=== PATIENT | female | born 1950 | race Caucasian/White ===

== ENCOUNTER → 2017-04-05 | Outpatient (CLI) | payer OTHER, MEDICARE | LOC: NUC 12:01 | DX: M47.894 Other spondylosis, thoracic region (principal); I10 Essential (primary) hypertension; R61 Generalized hyperhidrosis; R06.09 Other forms of dyspnea ==

== ENCOUNTER → 2021-08-04 | Outpatient (CLI) | payer OTHER, MEDICARE ==
[~2021-08-04] VITALS: Ht 162.6 cm; Wt 65.3 kg
[~2021-08-04] MED LIST: ALPRAZOLAM1 MG PO; ANAPROX DS550 MG PO; ASA81BEC PO; BUPROPION XL300 MG PO; COZAAR100 MG PO; CULTURELLE1 EAC2 PO; FLUOXETINE HCL40 MG PO; LIPITOR80 MG PO; METHOCARBAMOL750 MG PO; MUCINEX600 MG PO; PERCOCET 5-3251 EACH PO
--- NOTE | ~2021-08-04 | HPC ---
[facility] [place] [address] PAIN MANAGEMENT CONSULTATION Name: DEMETRIO BOWLING Room #: REG GENE Yevgeniy#: [id number] Admission: 08/04/21 Attend Phys: Aram Lester DO Discharge: Date of : 50 Report #: [id number] THIS REPORT FOR: cc: CHENTE - [facility] family physician/PCP FAM - No family physician/PCP Aram Lester DO ~ cc: Tyler Sherwood MD DATE OF SERVICE: 08/04/2021 REFERRING PHYSICIAN: Dr. Tyler Sherwood. CHIEF COMPLAINT: Low back pain, right anterior thigh pain. HISTORY OF PRESENT ILLNESS: As you know, the patient is a 71-year-old female who has had a multiple-year history of low back pain, right anterior thigh pain. She states the pain began without inciting injury or trauma. She has trialled conservative treatment without benefit. She sought evaluation through Neurosurgery, seeing Dr. Tyler Sherwood in consultation. She has submitted to minimally invasive L4-L5 laminectomies with medial facetectomies and foraminotomies. This was done in 01/2021. She had been following up for routine evaluations. She has been utilizing oxycodone consistently for pain control. Unfortunately, her symptoms have not improved with treatment with oral medications and we have not seen a significant improvement in her symptomology after even surgery. Due to lack of improvement with conservative treatment and being advised that there is no further surgical options other than the implantation of a spinal cord stimulator, the patient was referred on to our clinic to discuss the possibility of undergoing lumbar epidural injections. If these are unsuccessful, then trial a spinal cord stimulator. The patient reports today pain is periodic. She describes pain as more of a shooting, aching, throbbing, sharp, numbness and tingling. The patient's current pain score at 9.75/10. Daily average at 10/10. Worst pain has been is 10/10. The patient states pain varies with activity, improves with lying down. She has been referred to our service to discuss interventional treatment options to address lumbar radiculopathy, unresolved with surgical options. PAST MEDICAL HISTORY: 1. Anemia. 2. Hypertension. 3. Degenerative joint disease. 4. Osteoarthritis. 5. Emotional problems. 6. Depression. 7. Anxiety. 8. Dyslipidemia. [address] [address] PAIN MANAGEMENT CONSULTATION Name: DEMETRIO BOWLING Room #: REG bA Vuong#: [id number] Admission: 08/04/21 Attend Phys: Aram Lester DO Discharge: Date of : 50 Report #: [id number] PAST SURGICAL HISTORY: 1. Partial hysterectomy with fibroid removal. 2. Right total hip arthroplasty. 3. Left total hip arthroplasty. 4. Right hand tendon surgery. 5. Left shoulder surgery x 2. 6. L4-L5 laminectomy and foraminotomy. SOCIAL HISTORY: The patient denies tobacco use. Denies IV or illicit drug use. Admits to occasional alcohol beverage. She is retired, retired several years ago. She is accompanied by her , present in room today. She is not receiving disability income, not trying to obtain any disability benefits and not in litigation in regards to her pain. REVIEW OF SYSTEMS: Positive for fatigue, weakness, hearing loss with tinnitus, shortness of breath, nocturia, breast discharge, numbness and tingling sensations, tremors, memory loss with confusion, nervousness, depression, anemia and chronic low back pain. All other review of systems negative per 12-point review of systems other than those listed in the history of present illness. Pain impact score 50 of 70, severe interference of daily activities secondary to pain. ALLERGIES: MORPHINE. CURRENT MEDICATIONS: Naproxen 550 mg once a day, methocarbamol 750 mg t.i.d., Percocet 5/325 one tab every 6 hours p.r.n. pain, losartan 100 mg per day, lactobacillus 1 tab per day, alprazolam 1 mg 3 times a day, aspirin 81 mg per day, atorvastatin 80 mg per day, bupropion 300 mg once a day, fluoxetine 40 mg once a day and guaifenesin 600 mg every 12 hours p.r.n. IMAGING: No imaging is provided. PQRS: The patient has known arthritic changes of the lumbar spine, bilateral hips. No rheumatoid arthritis. Placing pain intensity at 9.75/10. She is a no fall risk, but has had multiple falls in the last 3 months, apparently tripping over objects. This has been rectified. She is not on blood thinners, but is treated for hypertension. She is on chronic opioids, has a low to moderate opioid addiction potential based on assessment tool. Pain impact is 50 of 70, severe interference of daily activities secondary to pain. PHYSICAL EXAMINATION: VITAL SIGNS: Blood pressure 141/80, pulse 84, respiratory rate 16 and unlabored. The patient is 97% on room air. Height 5 feet 4 inches tall, weight 144 pounds, BMI calculated 24.7. GENERAL: Well-developed, well-nourished, well-hydrated 71-year-old female, [facility] [address] [place] [address] PAIN MANAGEMENT CONSULTATION Name: DEMETRIO BOWLING Room #: REG CLAb Vuong#: [id number] Admission: 08/04/21 Attend Phys: Aram Lester DO Discharge: Date of : 50 Report #: [id number] appears stated age. Pain is rated today 9.75/10. HEENT: Normocephalic, atraumatic. Pupils equal, round and responsive. She is wearing a facemask in compliance with COVID-19 regulations. LUNGS: Clear. CARDIOVASCULAR: Regular. No appreciable gallop or rub. ABDOMEN: Soft. EXTREMITIES: Show no clubbing, no cyanosis and no edema. MUSCULOSKELETAL: Lower extremities strength appears symmetrical 5/5, intact to light touch from L1 through S2 dermatomes. Seated straight leg raising is negative. Supine straight leg raising is essentially negative. She has an unsteady gait. She rises from a seated position with some difficulty. Muscle bulk and tone is equal and symmetrical in lower extremities. Deep tendon reflexes are equal and symmetrical. Straight leg raising negative bilaterally. ASSESSMENT: 1. Chronic low back pain. 2. Lumbar radiculopathy. 3. Lumbosacral spondylosis with radiculopathy. 4. Failed lumbar spine surgery. 5. Chronic intractable pain. 6. Left arm pain, status post fracture with a nonhealing fracture line. PLAN: 1. The patient has been referred to our service by her neurosurgeon, Dr. Tyler Sherwood to discuss treatment options for lumbar radicular symptoms unresolved with surgery options. The patient and I discussed the treatment options we have available to address lumbar radicular symptoms. We discussed that we will obtain the patient's MRI, so we can review those findings further, but gave general treatment options to address the issues today. The following was discussed with the patient. We discussed physical therapy, stretching exercise, core strengthening as a treatment approach. We discussed suggestions and medication management to add neuropathic medications such as amitriptyline, nortriptyline, Cymbalta, Lyrica or gabapentin to her current medication regimen. We discussed lumbar epidural injections under fluoroscopic guidance as a treatment approach. These have been successful in the past, but have been discontinued due to recent surgery. We also discussed spinal cord stimulator for which the patient was referred to our clinic by her neurosurgeon, Dr. Sherwood and ultimately surgical decompression though at this point, it appears that she is not a surgical candidate. After reviewing risks and benefits of all proposed treatment options, the patient chose to move forward with a lumbar epidural injection under fluoroscopic guidance. 2. The patient was advised due to third democrat payer authorizations and restrictions, we would have to obtain preauthorization for the patient to undergo lumbar epidural injection. We will begin that process immediately. Once it has been completed, we will have the patient return to undergo the first in a series of lumbar epidural injections. I [place] [address] PAIN MANAGEMENT CONSULTATION Name: DEMETRIO BOWLING Room #: REG GENE Vuong#: [id number] Admission: 08/04/21 Attend Phys: Aram Lester DO Discharge: Date of : 50 Report #: [id number] we will have the patient return as quickly as possible to undergo that procedure. 3. The patient and I did discuss at length the spinal cord stimulator technology for which the patient was referred to our clinic. She wishes to delay that option of treatment and consider epidurals initially. If these are unsuccessful, then trial the spinal cord stimulator. We will provide the patient with information at her next visit in regards to the cord stimulator we would recommend and if she chooses to move forward, send her off to see Psychiatry as part of the workup for that device. 4. The patient complains of ongoing left arm pain. Apparently, she has an unhealing fracture. There was some complication with the instrumentation initially and the patient has had a nonunion fracture. She has been advised by Orthopedics that a total shoulder will be necessary to address this issue. If this is truly the case, I would side with the orthopedic surgeon. If a total shoulder would be something to alleviate the patient's symptoms, I would recommend moving forward with that type of treatment. She is on opioid medication and is not noticing much benefit with this medication and thus I do not feel that any further adjustments in that medication will be providing any significant benefit. We recommend the patient follow up with Orthopedics in regard to total shoulder. 5. We will see the patient back in followup visit once we have achieved the authorization to undergo the lumbar epidural injection she has requested today. We will discuss further the spinal cord stimulator at that time. 6. We wish to thank Dr. Tyler Sherwood for the referral of the patient to our clinic. We will keep you apprised of response to treatment as we address lumbar radiculopathy with lumbar epidural injections initially and whether or not we move forward with a spinal cord stimulator. By: [id number] Aram Lester DO /nt
[2021-08-04 14:26] VITALS: BP 141/80
--- NOTE | 2021-08-04 14:28 | NUR ---
Pain Clinic Assessment: 1. History of Osteoarthritis: HIPS BACK History of Rheumatoid Arthritis: Not Applicable 2. Height: 5 ft. 4 in. 162.6 cm. Weight: 144.0 lb. oz. 65.318 kg. Patient's BMI: 24.7 3. Vital Signs: BP: 141/80 Pulse: 84 Resp: 16 Temp: 02 Sat: 97 ECG Mon: 4. Pain Intensity: 8.75 5. Fall Risk: Dizziness: N Needs help standing or walking: N Fallen in the last 3 months: Y Fall risk comments: 6. Patient on Blood Thinner: None 7. History of Hypertension: Y 8. Opioid Therapy greater than 6 weeks: Y Opiate Contract Signed: 9. Risk Assessment Tool Provided: LOW-2 10. Functional Assessment Tool: 50/70 11. Recreational Drug Use: Never Drug Type: Tobacco Use: Never Smoker Tobacco Type: Amount or Packs/day: How Many Years: Alcohol Use: Yes Frequency: Special Occasions Quant:
== END ==
LOC: PAIN 10:08
PROVIDERS: ATTEND Anesthesiology Pain Medicine
DX: M47.27 Other spondylosis with radiculopathy, lumbosacral region (principal); M54.16 Radiculopathy, lumbar region; G89.29 Other chronic pain; M54.50 Low back pain, unspecified; M79.602 Pain in left arm; Z88.8 Allergy status to other drugs, medicaments and biological substances; Z79.899 Other long term (current) drug therapy

== ENCOUNTER → 2021-08-11 | Outpatient (CLI) | payer OTHER, MEDICARE ==
[~2021-08-11] VITALS: Ht 162.6 cm; Wt 65.8 kg
[~2021-08-11] MED LIST changes: +PERCOCET 10-321 EAC1 PO; -PERCOCET 5-3251 EACH PO
--- NOTE | ~2021-08-11 | HPC ---
[facility] [place] [place] [address] PAIN MANAGEMENT CONSULTATION Name: DEMETRIO BOWLING Room #: REG Ab Fuller.#: [id number] Admission: 08/11/21 Attend Phys: Aram Lester DO Discharge: Date of : 50 Report #: [id number] THIS REPORT FOR: cc: TOM BOLIVAR MD, RADHIKA MD Johnson, James E. DO ~ DATE OF SERVICE: 08/11/2021 REFERRING PHYSICIAN: 08/11/2020 CHIEF COMPLAINT: Low back pain, right anterior thigh pain. HISTORY OF PRESENT ILLNESS: As you know, the patient is a 71-year-old female who has a longstanding history of low back pain, right anterior thigh pain. She states pain began without inciting injury or trauma. She trialed conservative treatment without benefit. She sought evaluation through Neurosurgery seeing Dr. Tyler Sherwood in consultation to address surgery at the L4-5 level. It was determined at this last visit that treatment should remain conservative as he did not feel that surgery would be beneficial. The patient was referred to our clinic to discuss either interventional therapy such as epidural injections or to discuss spinal cord stimulator therapy. 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 We had discussed at that visit the treatment options we had available. She wishes to start with a lumbar epidural injection. If this is effective, continue to use epidural injections on an as needed type of treatment. If the epidural injection is ineffective, she would then consider the spinal cord stimulator as an option. We gave the patient information about the spinal cord stimulator at the last visit. We made today's appointment for the patient to undergo an epidural injection under fluoroscopic guidance. She returns today to undergo the first in the series. She is placing current pain score at 10/10. ALLERGIES: MORPHINE. CURRENT MEDICATIONS: Naproxen, methocarbamol, Percocet, losartan, lactobacillus, aspirin, atorvastatin, bupropion, fluoxetine, guaifenesin. SOCIAL HISTORY: The patient denies tobacco use. Denies IV or illicit drug use. Admits to occasional alcohol beverage. She is retired, retired years ago, unaccompanied today. IMAGING: No imaging was provided. PQRS: The patient has known arthritic changes of lumbar spine, bilateral hips. No rheumatoid arthritis, placing current pain score up to a 10/10. She is not a fall risk, has not had a fall in last 3 months. She is not on blood thinners, but is treated for hypertension. She is on chronic opioids, has a low opioid [address] [address] PAIN MANAGEMENT CONSULTATION Name: DEMETRIO BOWLING Room #: REG [facility] Yevgeniy#: [id number] Admission: 08/11/21 Attend Phys: Aram Lester DO Discharge: Date of : 50 Report #: [id number] addiction potential based on assessment tool. Pain impact is 50 of 70, severe interference of daily activities secondary to pain. PHYSICAL EXAMINATION: VITAL SIGNS: Blood pressure 117/76, pulse is 83, respiratory rate 14 and unlabored. The patient 100% on room air. Height 5 feet 4 inches tall, weight 145 pounds, BMI calculated 24.9. GENERAL: Well-developed, well-nourished, well-hydrated 71-year-old female. She appears her stated age, no acute distress. Awake, alert and oriented x3. Pain score is anywhere from to 2-10/10. HEENT: Normocephalic, atraumatic. Pupils are round. Wearing a mask in compliance with COVID-19 regulations and the hospital policies. EXTREMITIES: Show no clubbing, no cyanosis and no edema. MUSCULOSKELETAL: Lower extremity strength equal and symmetrical, 5/5. Seated straight leg raising negative. Supine straight leg raising negative. She does have an unsteady gait favoring right lower extremity. She rises from a seated position once again with some difficulty. Muscle bulk and tone is equal and symmetrical. ASSESSMENT: 1. Chronic low back pain. 2. Lumbar radiculopathy. 3. Lumbosacral spondylosis with radiculopathy. 4. Failed lumbar spine surgery. 5. Chronic intractable pain. PLAN: 1. The patient returns today in followup visit per the request of her neurosurgeon to undergo lumbar epidural injection under fluoroscopic guidance. The patient has been advised of the risks and the benefits of a lumbar epidural injection. These risks include but are not necessarily limited to bleeding, bruising, infection, worsening pain, no relief of pain, also risk of temporary or permanent muscle weakness, temporary or permanent nerve damage, possible paralysis, post-dural puncture headache and . The patient states understood and wished to proceed. 2. The patient is considering the spinal cord stimulator as an option. She wants to determine whether or not the epidural injections will be beneficial. She will contact our clinic if she does wish to move forward with that type of treatment course. 3. We will see the patient back in followup visit in 3 months for an epidural injection. This is based on the new Medicare guidelines, which would require that the patient receive 50% improvement in overall pain for 3 months prior to the next in the series of epidural injections. We will see her back at the 3-month alma to undergo the next in the series of epidural injections. PROCEDURE NOTE. [address] [address] PAIN MANAGEMENT CONSULTATION Name: DEMETRIO BOWLING Room #: REG GENE Vuong#: [id number] Admission: 08/11/21 Attend Phys: Aram Lester DO Discharge: Date of : 50 Report #: [id number] DESCRIPTION OF PROCEDURE: L5-S1 right paramedian epidural steroid injection under fluoroscopic guidance. This is the first procedure of the first series that the patient is undergoing. After obtaining written consent, the patient was taken back to the fluoroscopy suite, placed in a prone position with pillow under the abdomen to decrease lumbar lordosis. The skin overlying the lumbosacral area was then prepped and draped in aseptic fashion. The L5-S1 vertebral interspace was then identified by AP fluoroscopy. The skin and subcutaneous tissue overlying the target site of injection was anesthetized with 3 mL 1% lidocaine. A 20-gauge 3-1/2-inch Tuohy needle was then advanced under fluoroscopic guidance towards the epidural space using a right paramedian approach. The epidural space was identified using loss of resistance to air technique. After negative aspiration for heme or cerebrospinal fluid, a total of 1 mL of Omnipaque was injected. A lumbar epidurogram was confirmed using both AP and lateral fluoroscopy. After negative aspiration for heme or cerebrospinal fluid, 5 mL of a solution containing 2 mL 40 mg per mL 80 mg total triamcinolone along with 3 mL of lidocaine 1% was injected in increments. Contrast spread was noted in posterior epidural space. The needle was then retracted approximately half way and needle tract flushed with 1 mL of 1% lidocaine. Needle was then removed. There were no apparent sensory or motor deficits in the lower extremity following the procedure. A sterile bandage was placed over the injection site. The heart rate, pulse, oximetry and blood pressure were continuously monitored after the procedure. There were no apparent complications. The patient tolerated the procedure well and was carefully escorted to the recovery room in stable condition. There were no apparent complications. After meeting discharge criteria, the patient was then discharged home. By: [id number] Aram Lester DO /nt
[2021-08-11 13:11] VITALS: BP 117/76
--- NOTE | 2021-08-11 13:28 | NUR ---
Pain Clinic Assessment: 1. History of Osteoarthritis: HIPS BACK History of Rheumatoid Arthritis: Not Applicable 2. Height: 5 ft. 4 in. 162.6 cm. Weight: 145.0 lb. oz. 65.772 kg. Patient's BMI: 24.9 3. Vital Signs: BP: 117/76 Pulse: 83 Resp: 14 Temp: 02 Sat: 100 ECG Mon: 4. Pain Intensity: 2 TO 10 5. Fall Risk: Dizziness: N Needs help standing or walking: N Fallen in the last 3 months: N Fall risk comments: 6. Patient on Blood Thinner: None 7. History of Hypertension: Y 8. Opioid Therapy greater than 6 weeks: Y Opiate Contract Signed: 9. Risk Assessment Tool Provided: LOW-2 10. Functional Assessment Tool: 50/70 11. Recreational Drug Use: Never Drug Type: Tobacco Use: Never Smoker Tobacco Type: Amount or Packs/day: How Many Years: Alcohol Use: Yes Frequency: Special Occasions Quant: 1
== END ==
LOC: PAIN 10:45
PROVIDERS: ATTEND Anesthesiology Pain Medicine
DX: M47.26 Other spondylosis with radiculopathy, lumbar region (principal); G89.28 Other chronic postprocedural pain; Z79.899 Other long term (current) drug therapy